=== PATIENT | female | born 2000 | race Caucasian/White ===

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

== ENCOUNTER 2023-06-08 16:30 | Emergency (ER) | payer OTHER, SELFPAY ==
[2023-06-08] VITALS (19 sets, daily range): BP systolic 105–140; BP diastolic 70–88; PULSE 47–69; RESP 14–27; TEMP 36.6; O2SAT 97–100; BMI 28.8
[2023-06-08 16:57] LABS: Basophils # 0.1 10^3/uL (0.0-0.1); Basophils % 0.3 %; Eosinophils % 0.1 %; Lymphocytes # 1.5 10^3/uL (0.8-4.8); Lymphocytes % 9.6 %; Mean Corpuscular HGB Conc 34.8 g/dL (30-55); Mean Corpuscular Hemoglobin 30.7 pg (27-33); Mean Corpuscular Volume 88.2 fl (85-98); Mean Platelet Volume 9.9 fL (7.4-10.4); Monocytes # 0.6 10^3/uL (0.2-0.9); Monocytes % 3.8 %; Neutrophils # 13.02 10^3/uL (1.8-7.7); Neutrophils % 85.9 %; Nucleated Red Blood Cells % 0 %; Platelet Count 291 10^3/cmm (157-399); Red Blood Count 4.99 10^6/uL (3.85-5.65); Red Cell Distribution Width 11.9 % (12.1-15.1); White Blood Count 15.17 10^3/uL (3.29-11.43)
[2023-06-08] MEDS: sodium chloride 0.9% 1,000 ML 999 ML IV (17:13)
[2023-06-08 17:14] LABS: Alanine Aminotransferase 13 U/L (0-33); Albumin Level 5.2 g/dL (3.5-5.2); Alkaline Phosphatase 61 U/L (35-105); Anion Gap 22.3 (5-19); Aspartate Amino Transferase 12 U/L (0-32); Blood Urea Nitrogen 13 mg/dL (6-20); Calcium 9.6 mg/dL (8.5-10.5); Carbon Dioxide 19 mmol/L (22-29); Chloride 103 mmol/L (98-107); Creatinine Clr Calc Pharmacy 141.1773; Globulin 3.2 g/dL (1.3-4.6); Glomerular Filtration Rate 105.6 mL/min (90-130); Glucose 157 mg/dL (65-115); Lipase 23 U/L (13-60); Osmolality Calculated 295 mOsm/kg (285-295); Potassium 3.3 mmol/L (3.5-5.1); Sodium 141 mmol/L (136-145); Total Bilirubin 1.6 mg/dL (0.15-1.2); Total Protein 8.4 g/dL (6.6-8.7)
[2023-06-08] MEDS: metoclopramide 5 mg/mL SDV 2 mL 10 MG IVP (17:14)
[2023-06-08 17:17] LABS: HCG, Serum Qual Negative (Negative)
[2023-06-08] MEDS: ketorolac 30 mg/mL INJ IVP (17:49)
--- NOTE | 2023-06-08 18:12 | W.ED.ABDPA2 ---
HPI - Abdominal Pain General: Chief Complaint: Abdominal Pain Stated Complaint: abd pain, sent by urgent care Time Seen by Provider: 06/08/23 16:51 History of Present Illness: Patient presents to the ER with complaints of epigastric abdominal pain and nausea vomiting. Patient states this been going on for the last few months that she is barely been able to finish her meal. Patient says she does not have a gallbladder. Patient does appear mildly lethargic and pale. Patient went to the urgent care earlier today and they sent her over here for IV fluids and further evaluation and treatment. Review of Systems General: Reports: 10 or more systems reviewed and unremarkable except in HPI and below PFSH ED PFSH: Social History Smoking and tobacco/nicotine status: current every day tobacco/nicotine user (pt states she vapes) Physical Exam Const: COMMON NORMALS: no acute distress, average body habitus, patient oriented x3, no limitations, healthy appearing, alert and well nourished HENMT: COMMON NORMALS: normocephalic, atraumatic, hearing grossly normal bilaterally, external ears normal, Normal external nose present, moist oral mucous membranes and oropharynx normal HEAD & SCALP: normocephalic and atraumatic NOSE: Normal external nose present EXTERNAL EAR: Yes external ears normal Neck/C-Spine: COMMON NORMALS: full ROM, no lymphadenopathy, supple, no meningeal signs, no JVD and Thyroid normal THYROID: Thyroid normal Chest: COMMONS NORMALS: normal inspection of the chest and normal palpation of entire chest wall Resp: COMMON NORMALS: normal respiratory effort, No retractions, No use of accessory muscles and clear to auscultation bilaterally AUSCULTATION: clear to auscultation bilaterally Cardio: COMMON NORMALS: no JVD, regular rate, regular rhythm, S1 normal heart sound present, S2 normal heart sound present, No gallops present (Cardio), No clicks present (Cardio), No murmurs present (Cardio) and No rub (Cardio) RATE: regular rate RHYTHM: regular rhythm HEART SOUNDS: S1 normal heart sound present and S2 normal heart sound present GI: COMMON NORMALS: Normal to inspection, nondistended, normoactive bowel sounds present, Soft to palpation, No hepatosplenomegaly present and no masses; negative for non-tender (Tender to palpate over epigastric area) PALPATION: Yes Soft to palpation and Yes No hepatosplenomegaly present Neuro: COMMON NORMALS: patient oriented x3 SENSORIUM/ORIENTATION: Yes alert MENINGEAL SIGNS: Yes no meningeal signs Course Vital Signs: Vital signs: Vital Signs Temperature 97.8 F 06/08/23 16:33 Pulse Rate 60 06/08/23 18:35 Respiratory Rate 18 06/08/23 18:35 Blood Pressure 124/75 06/08/23 18:35 Pulse Oximetry 100 06/08/23 18:35 Oxygen Delivery Me thod Room Air 06/08/23 18:35 MDM - Abdominal Pain Medical Decision Making Patient presents to the ER from urgent care where she had 8 mg of Zofran, patient got 10 mg of Reglan here which were good for couple hours then patient got Haldol and Ativan. Lab work came back patient has a white count of 15,000 potassium 3.3 otherwise lab work is essentially unremarkable. Patient hurt in her epigastric area. It is thought you probably have a gastritis with stomach involvement patient will be discharged on Zofran and Pepcid to take for the next couple weeks. Differential Diagnosis Likely abdominal pain; Unlikely acute appendicitis, calculus of kidney, constipation, diverticulitis, endometriosis, gastroenteritis, pancreatitis or small bowel obstruction Medical Records I reviewed the patient's medical records. Lab Data I reviewed the patient's lab results. 06/08/23 16:51 06/08/23 16:51 Labs/Radiology: Laboratory Results WBC 15.17 10^3/uL (3.29-11.43) H 06/08/23 16:51 RBC 4.99 10^6/uL (3.85-5.65) 06/08/23 16:51 Hgb 15.30 g/dL (11.27-16.99) 06/08/23 16:51 Hct 44.0 % (36-47) 06/08/23 16:51 MCV 88.2 fl (85-98) 06/08/23 16:51 MCH 30.7 pg (27-33) 06/08/23 16:51 MCHC 34.8 g/dL (30-55) 06/08/23 16:51 RDW 11.9 % (12.1-15.1) L 06/08/23 16:51 Plt Count 291 10^3/cmm (157-399) 06/08/23 16:51 MPV 9.9 fL (7.4-10.4) 06/08/23 16:51 Neut % (Auto) 85.9 % 06/08/23 16:51 Lymph % (Auto) 9.6 % 06/08/23 16:51 [place] % (Auto) 3.8 % 06/08/23 16:51 Eos % (Auto) 0.1 % 06/08/23 16:51 Baso % (Auto) 0.3 % 06/08/23 16:51 Neut # (Auto) 13.02 10^3/uL (1.8-7.7) H 06/08/23 16:51 Lymph # (Auto) 1.5 10^3/uL (0.8-4.8) 06/08/23 16:51 [place] # (Auto) 0.6 10^3/uL (0.2-0.9) 06/08/23 16:51 Eos # (Auto) 0.0 10^3/uL (0.0-0.8) 06/08/23 16:51 Baso # (Auto) 0.1 10^3/uL (0.0-0.1) 06/08/23 16:51 Nucleated RBC % (auto) 0 % 06/08/23 16:51 Nucleated RBCs # 0.0 /100WBC 06/08/23 16:51 Sodium 141 mmol/L (136-145) 06/08/23 16:51 Potassium 3.3 mmol/L (3.5-5.1) L 06/08/23 16:51 Chloride 103 mmol/L (98-107) 06/08/23 16:51 Carbon Dioxide 19 mmol/L (22-29) L 06/08/23 16:51 Anion Gap 22.3 (5-19) H 06/08/23 16:51 BUN 13 mg/dL (6-20) 06/08/23 16:51 Creatinine 0.7 mg/dL (0.5-0.9) 06/08/23 16:51 GFR Calculation 105.6 mL/min (90-130) 06/08/23 16:51 Glucose 157 mg/dL (65-115) H 06/08/23 16:51 Calculated Osmolality 295 mOsm/kg (285-295) 06/08/23 16:51 Calcium 9.6 mg/dL (8.5-10.5) 06/08/23 16:51 Total Bilirubin 1.6 mg/dL (0.15-1.2) H 06/08/23 16:51 AST 12 U/L (0-32) 06/08/23 16:51 ALT 13 U/L (0-33) 06/08/23 16:51 Alkaline Phosphatase 61 U/L (35-105) 06/08/23 16:51 Total Protein 8.4 g/dL (6.6-8.7) 06/08/23 16:51 Albumin 5.2 g/dL (3.5-5.2) 06/08/23 16:51 Globulin 3.2 g/dL (1.3-4.6) 06/08/23 16:51 Lipase 23 U/L (13-60) 06/08/23 16:51 HCG, Qual Negative (Negative) 06/08/23 16:51 Urine Color Dark yellow (Yellow) 06/08/23 18:18 Urine Appearance Clear (CLEAR) 06/08/23 18:18 Urine pH 5 (5-7) 06/08/23 18:18 Ur Specific Woody 1.025 (1.005-1.030) 06/08/23 18:18 Urine Protein Neg (Negative) 06/08/23 18:18 Urine Glucose (UA) 2+ (Normal) H 06/08/23 18:18 Urine Ketones 3+ (Negative) H 06/08/23 18:18 Urine Blood Neg (Negative) 06/08/23 18:18 Urine Nitrate Negative (Negative) 06/08/23 18:18 Urine Bilirubin Neg (Negative) 06/08/23 18:18 Urine Urobilinogen 1 mg/dL (Negative) H 06/08/23 18:18 Ur Leukocyte Esterase Negative (Negative) 06/08/23 18:18 All radiology interpretation(s) finalized by discharge Discharge Plan Discharge Patient Disposition: Home Clinical Impression: Vomiting Qualifiers: Vomiting type: bilious vomiting Nausea presence: with nausea Qualified Code(s): R11.14 - Bilious vomiting Abdominal pain Qualifiers: Abdominal location: epigastric Qualified Code(s): R10.13 - Epigastric pain Condition: Stable Prescriptions: New ondansetron HCl 4 mg tablet 4 mg PO Q8H PRN (Reason: nausea and vomiting) Qty: 14 0RF famotidine [Pepcid] 40 mg tablet 40 mg PO BID Qty: 30 0RF No Action omeprazole 20 mg Tablet,Delayed Release (Dr/Ec) 20 mg PO DAILY Discharge Orders: Discharge ED (Routine); Ordered 06/08/23 Ordered By: Toney Sullivan Referrals: Agnieszka Keating MD [Primary Care Provider] - 1 week Patient Instructions: Abdominal Pain (ED) Activity Restrictions/Additional Instructions: Please take all your medicine as directed. Please follow-up with your family doctor in the next 7 days for further evaluation testing. If your pain or nausea vomiting becomes worsening or unbearable please return to the ER. Coding Level of Care Code ED Civil Engineering Director for Neda Garcia
[2023-06-08 18:23] LABS: Add Urine Microscopic? NO; Charge for UA Resulting for Rev
[2023-06-08] MEDS: LORazepam 2 mg/mL INJ 10 mL MDV 0.5 MG IV (18:27)
[2023-06-08] MEDS: haloperidol inj 5 mg/mL INJ 1 mL 2 MG IVP (18:28)
[2023-06-08 18:32] LABS: Bilirubin Urine Neg (Negative); Blood Urine Neg (Negative); Glucose Urine UA 2+ (Normal); Ketones Urine 3+ (Negative); Leukocyte Esterase Urine Negative (Negative); Nitrate Urine Negative (Negative); Protein Urine Neg (Negative); Specific Gravity, Urine 1.025 (1.005-1.030); Urine Appearance Clear (CLEAR); Urine Color Dark Yellow (Yellow); Urobilinogen Urine 1 mg/dL (Negative); pH Urine 5 (5-7)
== END 2023-06-08 19:11 | disposition home or self-care (01) ==
PROVIDERS: Emergency Medicine; Emergency Provider Emergency Medicine; PCP Family Medicine
DX: R11.14 Bilious vomiting (principal); R10.13 Epigastric pain; F17.290 Nicotine dependence, other tobacco product, uncomplicated
CPT/HCPCS: 80053; 81000; 81003; 81025; 83690; 84703; 85025; 96374; 96375; 99284; J1630; J1885; J2060; J2765; J7030

== ENCOUNTER 2023-06-30 10:07 | Emergency (ER) | payer OTHER, SELFPAY ==
[2023-06-30] VITALS (7 sets, daily range): BP systolic 106–138; BP diastolic 78–95; PULSE 87–140; RESP 17–18; TEMP 36.5; O2SAT 96–100; BMI 26.2
--- NOTE | 2023-06-30 10:15 | ECG_ITS ---
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 Measurements Intervals [place] Rate: 151 P: -19 [place]: 135 QRS: -10 QRSD: 70 T: -11 QT: 306 QTc: 485 Interpretive Statements SINUS TACHYCARDIA WITH , POSSIBLE ATRIAL FLUTTER NONSPECIFIC ST & T-WAVE ABNORMALITY CRITICAL TEST RESULT Compared to ECG 12/25/2016 09:09:44 T-wave abnormality now present Sinus rhythm no longer present Electronically Signed On 07-01-2023 0:22:09 CDT by Jessica Spence M.D. [email or web address]
[2023-06-30 10:57] LABS: HCG Qualitative Urine. Negative (Negative)
[2023-06-30] MEDS: sodium chloride 0.9% 1,000 ML 999 ML IV (11:03)
[2023-06-30 11:04] LABS: Basophils % 0.4 %; Eosinophils # 0.1 10^3/uL (0.0-0.8); Eosinophils % 0.7 %; Hematocrit 46.9 % (36-47); Lymphocytes # 1.2 10^3/uL (0.8-4.8); Lymphocytes % 16.9 %; Mean Corpuscular Hemoglobin 30.5 pg (27-33); Mean Corpuscular Volume 87.2 fl (85-98); Mean Platelet Volume 10.7 fL (7.4-10.4); Monocytes # 0.3 10^3/uL (0.2-0.9); Monocytes % 3.6 %; Neutrophils % 78.1 %; Nucleated Red Blood Cells % 0 %; Platelet Count 237 10^3/cmm (157-399); Red Blood Count 5.38 10^6/uL (3.85-5.65); Red Cell Distribution Width 12.5 % (12.1-15.1); White Blood Count 6.92 10^3/uL (3.29-11.43)
[2023-06-30] MEDS: metoclopramide 5 mg/mL SDV 2 mL 10 MG IVP (11:04)
[2023-06-30 11:19] LABS: Add Urine Microscopic? YES; Bilirubin Urine 1+ (Negative); Blood Urine Neg (Negative); Glucose Urine UA Norm (Normal); Ketones Urine 3+ (Negative); Leukocyte Esterase Urine Negative (Negative); Nitrate Urine Negative (Negative); Protein Urine Neg (Negative); Urine Appearance Hazy (CLEAR); Urine Color Dark Yellow (Yellow); Urobilinogen Urine 1 mg/dL (Negative); pH Urine 6 (5-7)
[2023-06-30 11:21] LABS: Add Urine Culture? No; Bacteria Urine TRACE /hpf; Mucus Urine 4+ /hpf; RBC Urine RARE /hpf (0-2); Squamous Epithelial Cell Urine 0-4 /hpf (0-5); WBC Urine 0-4 /hpf (0-5)
[2023-06-30 11:23] LABS: Alanine Aminotransferase 319 U/L (0-33); Albumin Level 4.9 g/dL (3.5-5.2); Alkaline Phosphatase 64 U/L (35-105); Anion Gap 26.8 (5-19); Aspartate Amino Transferase 90 U/L (0-32); Blood Urea Nitrogen 9 mg/dL (6-20); Calcium 10.3 mg/dL (8.5-10.5); Carbon Dioxide 18 mmol/L (22-29); Chloride 96 mmol/L (98-107); Creatinine Clr Calc Pharmacy 134.9871; Globulin 3.4 g/dL (1.3-4.6); Glomerular Filtration Rate 105.6 mL/min (90-130); Glucose 90 mg/dL (65-115); Lipase 54 U/L (13-60); Osmolality Calculated 282 mOsm/kg (285-295); Potassium 3.8 mmol/L (3.5-5.1); Sodium 137 mmol/L (136-145); Total Bilirubin 1.8 mg/dL (0.15-1.2); Total Protein 8.3 g/dL (6.6-8.7)
[2023-06-30 11:45] LABS: Amphetamines Screen Urine Negative (Negative); Barbiturates Screen Urine Negative (Negative); Benzodiazepines Screen Urine Negative (Negative); Cocaine Screen Urine Negative (Negative); Opiate Screen Urine Negative (Negative); PCP Screen Urine Negative (Negative); THC Screen Urine Positive (Negative)
--- NOTE | 2023-06-30 12:51 | CT_ITS ---
WS: [id number] CT ABDOMEN AND PELVIS WITH CONTRAST HISTORY: upper abd pain, vomiting x2 wks TECHNIQUE: Imaging performed of the abdomen and pelvis with IV contrast. Single phase imaging of the abdomen. Coronal and sagittal reformats are submitted. All CT scans at [facility] use at [address] one of these dose optimization techniques: automated exposure control; mA and/or kV adjustment per patient size (includes targeted exams where dose is matched to clinical indication); or iterative re construction. IV CONTRAST: Omnipaque 350; 100 mL IV. Oral contrast: No DLP: 516.99 mGy.cm COMPARISON: 07/02/2019 Lower thorax: Lung bases are clear. Heart is normal size. No hiatal hernia. Liver/biliary system: Normal size with no intrahepatic dilatation. Gallbladder: Status post cholecystectomy. Pancreas: Normal size pancreas and pancreatic duct. No adjacent inflammation. Spleen: Normal size spleen. No mass or infarct. Adrenal glands: Normal. Right kidney: Normal. Left kidney: Normal. Aorta: Normal. Lymphadenopathy: None. Free fluid: None. GI tract: Unremarkable. Normal appendix. Abdominal wall: Unremarkable abdominal wall. No hernia. Pelvis: No free fluid or adenopathy within the pelvis. Bones: Unremarkable. CT/CT abdomen pelvis w con* [id number] IMPRESSION: 1. Prior cholecystectomy. 2. No bile duct dilatation. 3. Normal appendix. 4. No GI tract obstruction. 5. No acute abdominal or pelvic abnormalities.
--- NOTE | 2023-06-30 13:32 | ED_ITS ---
HPI - Nausea/Vomiting/Diarrhea 2 General: Chief complaint: Nausea/Vomiting/Diarrhea Stated complaint: cant keep anything down/ going on for 3 weeks Time Seen by Provider: 06/30/23 10:27 Source: patient and family Mode of arrival: ambulatory Limitations: no limitations History of Present Illness: Patient presents emergency department today for evaluation treatment of continued upper abdominal pain and vomiting. Patient's chart review shows that she has been seen twice within our healthcare system for the symptoms. Initially, patient was seen on 06/07 but due to her abdominal complaints, was recommended to be seen and evaluated at the emergency department. Initial documentation noted patient does not have a gallbladder but does use marijuana. They were thinking patient may have hyperemesis cannabis. ER evaluation revealed no acute concerns at that time and was treated symptomatically for abdominal discomfort and vomiting. Patient states she continued to have symptoms and admits she was seen at an outside facility. She noted she had some elevated liver function test and they did an ultrasound but found no acute concerns. She continues to have multiple episodes of vomiting daily with upper abdominal discomfort only relieved by her leaning over. She does get some relief with hot showers or baths per her report. No other similarly ill at home. She denies black or tarry stools. No noted blood in her vomit. She is having difficulty tolerating any type of intake including fluids. She is concerned for dehydration. Review of Systems 2 General: Reports: 10 or more systems reviewed and unremarkable except in HPI and below PFSH ED 2 PFSH: Social History Smoking and tobacco/nicotine status: current every day tobacco/nicotine user (pt states she vapes) Physical Exam 2 Const: COMMON NORMALS: patient oriented x3 and alert OTHER: Patient is pleasant and social but obviously uncomfortable. Sitting crosslegged on the bed leaning forward holding her abdomen. HENMT: COMMON NORMALS: normocephalic, atraumatic, hearing grossly normal bilaterally and moist oral mucous membranes HEAD & SCALP: normocephalic and atraumatic Eye: COMMON NORMALS: Equal, round and reactive pupils present, EOMs intact bilaterally and conjunctivae normal CONJUNCTIVA: Yes conjunctivae normal P UPIL: Yes Equal, round and reactive pupils present Neck/C-Spine: COMMON NORMALS: full ROM and no JVD Lymph: LYMPHATIC: no lymphadenopathy noted Resp: COMMON NORMALS: normal respiratory effort, No retractions, No use of accessory muscles and clear to auscultation bilaterally AUSCULTATION: clear to auscultation bilaterally Cardio: COMMON NORMALS: no JVD, regular rate and regular rhythm RATE: r egular rate RHYTHM: regular rhythm GI: COMMON NORMALS: Soft to palpation PALPATION: Yes Soft to palpation O THER: Patient tender in the upper abdominal region in the right upper quadrant and epigastric region. : COMMON NORMALS: Yes no CVA tenderness BLADDER/KIDNEY EXAM: Yes no CVA tenderness Back/Pelvis: COMMON NORMALS: no CVA tenderness, no thoracic nor lumbar tenderness and thoraco-lumbar ROM normal Extremity: COMMON NORMALS: normal to inspection, full ROM and capillary refill normal Neuro: COMMON NORMALS: patient oriented x3 SENSORIUM/ORIENTATION: Yes alert Psych: COMMON NORMALS: mental status grossly normal, Normal thought process present, cooperative, normal affect and activity/motor behavior normal T HOUGHT PROCESS: Normal thought process present Skin: COMMON NORMALS: no rashes or lesions noted and no wounds GENERAL SKIN EXAM: no rashes or lesions noted Course 2 Vital Signs: Vital signs: Vital Signs Temperature 97.7 F 06/30/23 10:15 Pulse Rate 96 06/30/23 15:12 Respiratory Rate 17 06/30/23 13:30 Blood Pressure 121/95 06/30/23 15:12 Pulse Oximetry 100 06/30/23 15:12 Oxygen Delivery Me thod Room Air 06/30/23 14:00 MDM - Nausea/Vomiting/Diarrhea Medical Decision Making Patient presents today for continued issues with upper abdominal pain and multiple episodes of daily vomiting. Patient has had a couple different evaluations without any acute findings and an underlying concern for possible hyperemesis cannabis. Did discuss with her that symptoms of this condition can last for several weeks. Patient again has elevated LFTs today and a slightly elevated bilirubin and as she had a negative ultrasound a couple of days ago and has a known cholecystectomy, I did proceed on with a CT scan to make sure there was no signs of any pancreatic involvement. Scan is negative today. With all these negative workups, I am more suspicious for hyperemesis cannabis. Patient is given a refill on her antinausea medications and is tolerating some p.o. intake-ice chips-in the room. I encouraged her to call her primary care doctor for recheck of her liver function test here in the next week or so. However, if she begins having itching of the skin or yellowing she is to be seen and reevaluated back in the ER immediately. Differential Diagnosis Likely dehydration; Unlikely traveler's diarrhea, food poisoning, gastroenteritis, clostridium difficile infection or drug-induced nausea and vomiting Lab Data 06/30/23 10:17 06/30/23 10:17 Radiology Impressions Abdomen/Pelvis CT 06/30/23 12:51 IMPRESSION: 1. Prior cholecystectomy. 2. No bile duct dilatation. 3. Normal appendix. 4. No GI tract obstruction. 5. No acute abdominal or pelvic abnormalities. Laboratory Results WBC 6.92 10^3/uL (3.29-11.43) 06/30/23 10:17 RBC 5.38 10^6/uL (3.85-5.65) 06/30/23 10:17 Hgb 16.40 g/dL (11.27-16.99) 06/30/23 10:17 Hct 46.9 % (36-47) 06/30/23 10:17 MCV 87.2 fl (85-98) 06/30/23 10:17 MCH 30.5 pg (27-33) 06/30/23 10:17 MCHC 35.0 g/dL (30-55) 06/30/23 10:17 RDW 12.5 % (12.1-15.1) 06/30/23 10:17 Plt Count 237 10^3/cmm (157-399) 06/30/23 10:17 MPV 10.7 fL (7.4-10.4) H 06/30/23 10:17 Neut % (Auto) 78.1 % 06/30/23 10:17 Lymph % (Auto) 16.9 % 06/30/23 10:17 [place] % (Auto) 3.6 % 06/30/23 10:17 Eos % (Auto) 0.7 % 06/30/23 10:17 Baso % (Auto) 0.4 % 06/30/23 10:17 Neut # (Auto) 5.40 10^3/uL (1.8-7.7) 06/30/23 10:17 Lymph # (Auto) 1.2 10^3/uL (0.8-4.8) 06/30/23 10:17 [place] # (Auto) 0.3 10^3/uL (0.2-0.9) 06/30/23 10:17 Eos # (Auto) 0.1 10^3/uL (0.0-0.8) 06/30/23 10:17 Baso # (Auto) 0.0 10^3/uL (0.0-0.1) 06/30/23 10:17 Nucleated RBC % (auto) 0 % 06/30/23 10:17 Nucleated RBCs # 0.0 /100WBC 06/30/23 10:17 Sodium 137 mmol/L (136-145) 06/30/23 10:17 Potassium 3.8 mmol/L (3.5-5.1) 06/30/23 10:17 Chloride 96 mmol/L (98-107) L 06/30/23 10:17 Carbon Dioxide 18 mmol/L (22-29) L 06/30/23 10:17 Anion Gap 26.8 (5-19) H 06/30/23 10:17 BUN 9 mg/dL (6-20) 06/30/23 10:17 Creatinine 0.7 mg/dL (0.5-0.9) 06/30/23 10:17 GFR Calculation 105.6 mL/min (90-130) 06/30/23 10:17 Glucose 90 mg/dL (65-115) 06/30/23 10:17 Calculated Osmolality 282 mOsm/kg (285-295) L 06/30/23 10:17 Calcium 10.3 mg/dL (8.5-10.5) 06/30/23 10:17 Total Bilirubin 1.8 mg/dL (0.15-1.2) H 06/30/23 10:17 AST 90 U/L (0-32) H 06/30/23 10:17 ALT 319 U/L (0-33) H 06/30/23 10:17 Alkaline Phosphatase 64 U/L (35-105) 06/30/23 10:17 Total Protein 8.3 g/dL (6.6-8.7) 06/30/23 10:17 Albumin 4.9 g/dL (3.5-5.2) 06/30/23 10:17 Globulin 3.4 g/dL (1.3-4.6) 06/30/23 10:17 Lipase 54 U/L (13-60) 06/30/23 10:17 HCG, Qual Negative (Negative) 06/30/23 10:33 Urine Color Dark yellow (Yellow) 06/30/23 10:33 Urine Appearance Hazy (CLEAR) A 06/30/23 10:33 Urine pH 6 (5-7) 06/30/23 10:33 Ur Specific [place] 1.030 (1.005-1.030) 06/30/23 10:33 Urine Protein Neg (Negative) 06/30/23 10:33 Urine Glucose (UA) Norm (Normal) 06/30/23 10:33 Urine Ketones 3+ (Negative) H 06/30/23 10:33 Urine Blood Neg (Negative) 06/30/23 10:33 Urine Nitrate Negative (Negative) 06/30/23 10:33 Urine Bilirubin 1+ (Negative) H 06/30/23 10:33 Urine Urobilinogen 1 mg/dL (Negative) H 06/30/23 10:33 Ur Leukocyte Esterase Negative (Negative) 06/30/23 10:33 Urine RBC Rare /hpf (0-2) 06/30/23 10:33 Urine WBC 0-4 /hpf (0-5) H 06/30/23 10:33 Ur Squamous Epith Cells 0-4 /hpf (0-5) H 06/30/23 10:33 Amorphous Sediment Not Reportable 06/30/23 10:33 Urine Bacteria Trace /hpf (NONE) 06/30/23 10:33 Urine Mucus 4+ /hpf 06/30/23 10:33 Urine Opiates Screen Negative ng/mL (Negative) 06/30/23 10:33 Ur Barbiturates Screen Negative ng/mL (Negative) 06/30/23 10:33 Ur Phencyclidine Scrn Negative ng/mL (Negative) 06/30/23 10:33 Ur Amphetamines Screen Negative ng/mL (Negative) 06/30/23 10:33 U Benzodiazepines Scrn Negative ng/mL (Negative) 06/30/23 10:33 Urine Cocaine Screen Negative ng/mL (Negative) 06/30/23 10:33 U Marijuana (THC) Screen Positive ng/mL (Negative) H 06/30/23 10:33 Hepatitis A IgM Ab Non-reactive (Nonreactive) 06/30/23 10:17 Hep Bs Antigen Non-reactive (Nonreactive) 06/30/23 10:17 Hep Bs Antibody 21.5 (11.5-1000) 06/30/23 10:17 Hep B Core Total Ab Non-reactive (Nonreactive) 06/30/23 10:17 Hepatitis C Antibody Non-reactive (Nonreactive) 06/30/23 10:17 All radiology interpretation(s) finalized by discharge Discharge Plan Discharge Patient Disposition: Home Clinical Impression: Elevated liver enzymes, Vomiting, Upper abdominal pain, History of cholecystectomy Condition: Stable Prescriptions: New ondansetron 4 mg tablet,disintegrating 4 mg PO Q8H 5 Days Qty: 15 0RF No Action omeprazole 20 mg Tablet,Delayed Release (Dr/Ec) 20 mg PO DAILY ondansetron HCl 4 mg tablet 4 mg PO Q8H PRN (Reason: nausea and vomiting) Qty: 14 0RF sucralfate 1 gram tablet 1 g PO QID hyoscyamine sulfate 0.125 mg tablet, sublingual 0.125 mg PO .6XDAILY PRN (Reason: UNKNOWN) Discharge Orders: Discharge ED (Routine); Ordered 06/30/23 Ordered By: Valeria Reilly Referrals: Agnieszka Keating MD [Primary Care Provider] - Discharge Diet: Advance as tolerated Discharge Activity: Increase activity as tolerated Activity Restrictions/Additional Instructions: Labs today show a slight elevation in your liver function test. Given that you do not have a gallbladder and recently had a negative ultrasound, we did obtain a CT scan to make sure that there was nothing around the pancreas or in the back of the liver that was unable to be visualized by the ultrasound. Fortunately, there were no abnormal findings on your CT examination. I recommend you have your liver function tests repeated in the next week or 2 by your primary care doctor. I am going to continue providing you antinausea medication as it is more likely at this point that you are still experiencing symptoms of hyperemesis cannabis. Unfortunately, the symptoms can last a couple of weeks after your last marijuana use. It does cause significant upper abdominal pains and profuse vomiting. The biggest concern is often dehydration as patients have difficult times tolerating p.o. intake. It is my hope that in the next several days you have resolution of your symptoms. If not, or if you have allover itching of your skin or yellowing of your skin you need to be seen and reevaluated again. Stand Alone Forms: Work/School Release Coding Level of Care Code ED Hosiery Repairer for Neda Garcia
[2023-06-30] MEDS: iohexol 350 mg/mL 500 mL Btl (per mL) IV (13:46)
[2023-06-30 13:55] LABS: Hepatitis A Antibody IgM Non-Reactive (Nonreactive); Hepatitis B Core AB, Total Non-Reactive (Nonreactive); Hepatitis B Surface AB 21.5 (11.5-1000); Hepatitis B Surface Antigen Non-Reactive (Nonreactive); Hepatitis C Virus Antibody Non-Reactive (Nonreactive)
== END 2023-06-30 15:13 | disposition home or self-care (01) ==
PROVIDERS: Emergency Medicine; Emergency Provider Physician Assistant; PCP Family Medicine
DX: R11.10 Vomiting, unspecified (principal); R10.10 Upper abdominal pain, unspecified; R74.01 Elevation of levels of liver transaminase levels; Z90.49 Acquired absence of other specified parts of digestive tract
CPT/HCPCS: 74177; 80053; 80306; 81001; 81025; 83690; 85025; 86705; 86706; 86709; 86803; 87340; 93005; 96361; 96374; 99285; J2765; J7030; Q9967

== ENCOUNTER 2023-07-06 09:27 | Emergency (ER) | payer OTHER, SELFPAY ==
[2023-07-06 09:59] VITALS: BP 104/88; PULSE 140; RESP 18; TEMP 36.7; O2SAT 97
[2023-07-06 10:12] LABS: Basophils % 0.5 %; Eosinophils % 0.5 %; Hematocrit 46.5 % (36-47); Lymphocytes # 1.3 10^3/uL (0.8-4.8); Lymphocytes % 20.8 %; Mean Corpuscular HGB Conc 34.8 g/dL (30-55); Mean Corpuscular Hemoglobin 30.6 pg (27-33); Mean Corpuscular Volume 87.9 fl (85-98); Mean Platelet Volume 10.5 fL (7.4-10.4); Monocytes # 0.4 10^3/uL (0.2-0.9); Monocytes % 6.3 %; Neutrophils # 4.55 10^3/uL (1.8-7.7); Neutrophils % 71.7 %; Nucleated Red Blood Cells % 0 %; Platelet Count 243 10^3/cmm (157-399); Red Blood Count 5.29 10^6/uL (3.85-5.65); White Blood Count 6.34 10^3/uL (3.29-11.43)
[2023-07-06 10:19] LABS: HCG, Serum Qual Negative (Negative)
[2023-07-06 10:26] LABS: Alanine Aminotransferase 167 U/L (0-33); Albumin Level 4.5 g/dL (3.5-5.2); Alkaline Phosphatase 62 U/L (35-105); Anion Gap 26.3 (5-19); Aspartate Amino Transferase 28 U/L (0-32); Blood Urea Nitrogen 9 mg/dL (6-20); Calcium 10.1 mg/dL (8.5-10.5); Carbon Dioxide 17 mmol/L (22-29); Chloride 96 mmol/L (98-107); Creatinine Clr Calc Pharmacy 154.5113; Globulin 3.3 g/dL (1.3-4.6); Glomerular Filtration Rate 126.2 mL/min (90-130); Glucose 121 mg/dL (65-115); Lipase 41 U/L (13-60); Osmolality Calculated 282 mOsm/kg (285-295); Potassium 3.3 mmol/L (3.5-5.1); Sodium 136 mmol/L (136-145); Total Bilirubin 1.7 mg/dL (0.15-1.2); Total Protein 7.8 g/dL (6.6-8.7)
[2023-07-06 10:40] VITALS: BP 120/92; PULSE 124; RESP 17; O2SAT 100
[2023-07-06] MEDS: sodium chloride 0.9% 1,000 ML 999 ML IV (10:56)
[2023-07-06] MEDS: ondansetron 2 mg/ML SDV 2 mL 8 MG IVP (10:56)
--- NOTE | 2023-07-06 11:21 | W.ED.NAVMDI ---
HPI - Nausea/Vomiting/Diarrhea General: Chief complaint: Nausea/Vomiting/Diarrhea Stated complaint: Vomiting Time Seen by Provider: 07/06/23 10:17 History of Present Illness: 23-year-old female presents the emergency room with nausea and vomiting and upper abdominal pain. She has been seen at this emergency room, [place], another [facility], and [place] in the last 3 weeks. Originally was thought to be cannabinoid hyperemesis. She says she has not smoked in 3 weeks and continues to have nausea and vomiting. She says she will occasionally have a good day but then it will happen again. She has Zofran. She is been on high-dose amine. She has been on Carafate. No fevers. No altered mental status. No diarrhea. She is supposed to see a electroneurodiagnostic technologist beginning of next month. Review of Systems Narrative: Constitutional symptoms: Negative except as documented in HPI. Skin symptoms: Negative except as documented in HPI. Eye symptoms: Negative except as documented in HPI. ENMT symptoms: Negative except as documented in HPI. Respiratory symptoms: Negative except as documented in HPI. Cardiovascular symptoms: Negative except as documented in HPI. Gastrointestinal symptoms: Negative except as documented in HPI. Genitourinary symptoms: Negative except as documented in HPI. Musculoskeletal symptoms: Negative except as documented in HPI. Neurologic symptoms: Negative except as documented in HPI. Psychiatric symptoms: Negative except as documented in HPI. Endocrine symptoms: Negative except as documented in HPI. [facility] ED PFSH: Social History Smoking and tobacco/nicotine status: current every day tobacco/nicotine user (pt states she vapes) Physical Exam Narrative: EXAM NARRATIVE: General: Alert, no acute distress. Skin: Warm, dry. Head: Normocephalic, atraumatic. Neck: Supple, trachea midline. Eye: Extraocular movements are intact. Ears, nose, mouth and throat: Tacky oral mucosa Cardiovascular: Regular, Normal peripheral perfusion. Respiratory: Lungs are clear to auscultation, respirations are non-labored, breath sounds are equal, Symmetrical chest wall expansion. Gastrointestinal: Soft, Nontender, Non distended, Normal bowel sounds. Musculoskeletal: Normal ROM, no deformity. Neurological: Alert and oriented, No focal neurological deficit observed. Psychiatric: Cooperative, appropriate mood & affect. Course Vital Signs: Vital signs: Vital Signs Temperature 98.1 F 07/06/23 09:59 Pulse Rate 109 H 07/06/23 12:41 Respiratory Rate 20 H 07/06/23 12:41 Blood Pressure 133/98 07/06/23 12:41 Pulse Oximetry 100 07/06/23 12:41 Oxygen Delivery Me thod Room Air 07/06/23 09:59 MDM - Nausea/Vomiting/Diarrhea Medical Decision Making Medical decision making: Differential diagnosis including but not limited to and based on the above HPI, review of systems and physical exam: Patient has had extensive workup. I do not think imaging will help today. Believe she needs follow-up with gastroenterology. Also her primary care provider. We will check basic lab work and check for renal failure today. Check electrolytes Orders placed to evaluate differential diagnosis based on the above differential, HPI and physical exam Lab Review: Laboratory results were reviewed and interpreted by myself the emergency room physician. White count is 6. Hemoglobin 16. BUN and creatinine are 9 and 0.6. Potassium just mildly decreased at 3.3. No urinary tract infection. I reviewed the patient's medical record. Reexamination: Vomiting has improved after receiving Zofran, fluids and then Compazine and Benadryl. Assessment and plan: Vomiting Dehydration - IV FLuids IV Compazine Benadryl and Zofran. - Discharged home - Discussed plan with patient. Answered any questions. - Evaluation and treatment of this problem were appropriate in the emergency setting. Lab Data 07/06/23 09:56 07/06/23 09:56 Laboratory Results WBC 6.34 10^3/uL (3.29-11.43) 07/06/23 09:56 RBC 5.29 10^6/uL (3.85-5.65) 07/06/23 09:56 Hgb 16.20 g/dL (11.27-16.99) 07/06/23 09:56 Hct 46.5 % (36-47) 07/06/23 09:56 MCV 87.9 fl (85-98) 07/06/23 09:56 MCH 30.6 pg (27-33) 07/06/23 09:56 MCHC 34.8 g/dL (30-55) 07/06/23 09:56 RDW 13.0 % (12.1-15.1) 07/06/23 09:56 Plt Count 243 10^3/cmm (157-399) 07/06/23 09:56 MPV 10.5 fL (7.4-10.4) H 07/06/23 09:56 Neut % (Auto) 71.7 % 07/06/23 09:56 Lymph % (Auto) 20.8 % 07/06/23 09:56 [place] % (Auto) 6.3 % 07/06/23 09:56 Eos % (Auto) 0.5 % 07/06/23 09:56 Baso % (Auto) 0.5 % 07/06/23 09:56 Neut # (Auto) 4.55 10^3/uL (1.8-7.7) 07/06/23 09:56 Lymph # (Auto) 1.3 10^3/uL (0.8-4.8) 07/06/23 09:56 [place] # (Auto) 0.4 10^3/uL (0.2-0.9) 07/06/23 09:56 Eos # (Auto) 0.0 10^3/uL (0.0-0.8) 07/06/23 09:56 Baso # (Auto) 0.0 10^3/uL (0.0-0.1) 07/06/23 09:56 Nucleated RBC % (auto) 0 % 07/06/23 09:56 Nucleated RBCs # 0.0 /100WBC 07/06/23 09:56 Sodium 136 mmol/L (136-145) 07/06/23 09:56 Potassium 3.3 mmol/L (3.5-5.1) L 07/06/23 09:56 Chloride 96 mmol/L (98-107) L 07/06/23 09:56 Carbon Dioxide 17 mmol/L (22-29) L 07/06/23 09:56 Anion Gap 26.3 (5-19) H 07/06/23 09:56 BUN 9 mg/dL (6-20) 07/06/23 09:56 Creatinine 0.6 mg/dL (0.5-0.9) 07/06/23 09:56 GFR Calculation 126.2 mL/min (90-130) 07/06/23 09:56 Glucose 121 mg/dL (65-115) H 07/06/23 09:56 Calculated Osmolality 282 mOsm/kg (285-295) L 07/06/23 09:56 Calcium 10.1 mg/dL (8.5-10.5) 07/06/23 09:56 Total Bilirubin 1.7 mg/dL (0.15-1.2) H 07/06/23 09:56 AST 28 U/L (0-32) 07/06/23 09:56 ALT 167 U/L (0-33) H 07/06/23 09:56 Alkaline Phosphatase 62 U/L (35-105) 07/06/23 09:56 Total Protein 7.8 g/dL (6.6-8.7) 07/06/23 09:56 Albumin 4.5 g/dL (3.5-5.2) 07/06/23 09:56 Globulin 3.3 g/dL (1.3-4.6) 07/06/23 09:56 Lipase 41 U/L (13-60) 07/06/23 09:56 HCG, Qual Negative (Negative) 07/06/23 09:56 Urine Color Dark yellow (Yellow) 07/06/23 12:22 Urine Appearance Slightly cloudy (CLEAR) 07/06/23 12:22 Urine pH 5 (5-7) 07/06/23 12:22 Ur Specific [place] 1.025 (1.005-1.030) 07/06/23 12:22 Urine Protein 1+ (Negative) H 07/06/23 12:22 Urine Glucose (UA) Norm (Normal) 07/06/23 12:22 Urine Ketones 3+ (Negative) H 07/06/23 12:22 Urine Blood Neg (Negative) 07/06/23 12:22 Urine Nitrate Negative (Negative) 07/06/23 12:22 Urine Bilirubin 1+ (Negative) H 07/06/23 12:22 Urine Urobilinogen 4 mg/dL (Negative) H 07/06/23 12:22 Ur Leukocyte Esterase Trace (Negative) H 07/06/23 12:22 Urine RBC Rare /hpf (0-2) 07/06/23 12:22 Urine WBC Rare /hpf (0-5) 07/06/23 12:22 Ur Squamous Epith Cells 5-10 /hpf (0-5) H 07/06/23 12:22 Amorphous Sediment 2+ /hpf 07/06/23 12:22 Urine Bacteria None /hpf (NONE) 07/06/23 12:22 Urine Mucus 4+ /hpf 07/06/23 12:22 Urine Opiates Screen Negative ng/mL (Negative) 07/06/23 12:22 Ur Barbiturates Screen Negative ng/mL (Negative) 07/06/23 12:22 Ur Phencyclidine Scrn Negative ng/mL (Negative) 07/06/23 12:22 Ur Amphetamines Screen Negative ng/mL (Negative) 07/06/23 12:22 U Benzodiazepines Scrn Negative ng/mL (Negative) 07/06/23 12:22 Urine Cocaine Screen Negative ng/mL (Negative) 07/06/23 12:22 U Marijuana (THC) Screen Positive ng/mL (Negative) H 07/06/23 12:22 No radiology studies performed this visit Discharge Plan Discharge Patient Disposition: Home Clinical Impression: Intractable nausea and vomiting, Dehydration Condition: Stable Prescriptions: New promethazine 25 mg suppository 25 mg GA Q6H PRN (Reason: nausea and vomiting) Qty: 12 0RF ondansetron 8 mg tablet,disintegrating 8 mg PO .q6 PRN (Reason: nausea and vomiting) Qty: 14 0RF No Action omeprazole 20 mg Tablet,Delayed Release (Dr/Ec) 20 mg PO DAILY ondansetron HCl 4 mg tablet 4 mg PO Q8H PRN (Reason: nausea and vomiting) Qty: 14 0RF sucralfate 1 gram tablet 1 g PO QID hyoscyamine sulfate 0.125 mg tablet, sublingual 0.125 mg PO .6XDAILY PRN (Reason: UNKNOWN) Discharge Orders: Discharge ED (Routine); Ordered 07/06/23 Ordered By: Debbie Rubio Referrals: Agnieszka Keating MD [Primary Care Provider] - 4-7 days Discharge Diet: Advance as tolerated Discharge Activity: Increase activity as tolerated Patient Instructions: Acute Nausea and Vomiting (ED) Activity Restrictions/Additional Instructions: Thank you for choosing [facility] for your healthcare needs today. Please realize this is an emergency room and that we are providing you with a medical screening exam and this may not be complete and all inclusive of all the testing and or work up that you may need to determine your ailment or severity of your illness. You have been screened and evaluated and felt safe for discharge. Health conditions do change or evolve sometimes and as such it is important that you follow up with your Primary Doctor to be re checked, 3-5 days is a general good time frame for follow up. You are always welcome to return to the ED for re assessment if your symptoms are worsening or you have new concerns Coding Level of Care Code ED Dance Coach for Neda Garcia
[2023-07-06 12:41] VITALS: BP 133/98; PULSE 109; RESP 20; O2SAT 100
[2023-07-06 12:51] LABS: Glucose Urine UA Norm (Normal); Ketones Urine 3+ (Negative); Protein Urine 1+ (Negative); Specific Gravity, Urine 1.025 (1.005-1.030); Urine Appearance Slightly Cloudy (CLEAR); Urine Color Dark Yellow (Yellow); pH Urine 5 (5-7)
[2023-07-06 12:52] LABS: Add Urine Microscopic? YES; Bilirubin Urine 1+ (Negative); Blood Urine Neg (Negative); Leukocyte Esterase Urine Trace (Negative); Nitrate Urine Negative (Negative); Urobilinogen Urine 4 mg/dL (Negative)
[2023-07-06 12:55] LABS: Add Urine Culture? No; Amorphous Sediment Urine 2+ /hpf; Mucus Urine 4+ /hpf; RBC Urine RARE /hpf (0-2); WBC Urine RARE /hpf (0-5)
[2023-07-06 12:57] LABS: Amphetamines Screen Urine Negative (Negative); Barbiturates Screen Urine Negative (Negative); Benzodiazepines Screen Urine Negative (Negative); Cocaine Screen Urine Negative (Negative); Opiate Screen Urine Negative (Negative); PCP Screen Urine Negative (Negative); THC Screen Urine Positive (Negative)
[2023-07-06] MEDS: diphenhydrAMINE 50 mg/mL SDV 1mL IVP (12:57)
[2023-07-06] MEDS: prochlorperazine 10 mg/2 mL Inj IVP (12:57)
== END 2023-07-06 13:27 | disposition home or self-care (01) ==
PROVIDERS: Physician Assistant; Emergency Provider Emergency Medicine; PCP Family Medicine
DX: R11.2 Nausea with vomiting, unspecified (principal); E86.0 Dehydration; F17.290 Nicotine dependence, other tobacco product, uncomplicated
CPT/HCPCS: 36415; 80053; 80306; 81001; 83690; 84703; 85025; 96361; 96374; 96375; 99284; J0780; J1200; J2405; J7030

== ENCOUNTER 2023-07-10 16:15 | Emergency (ER) | payer OTHER, SELFPAY ==
[2023-07-10 16:21] VITALS: BP 143/117; PULSE 132; RESP 17; TEMP 36.9; O2SAT 97
--- NOTE | 2023-07-10 16:31 | ED_ITS ---
Documented by User: RICHAR Bull 07/10/23 16:40 HPI - Nausea/Vomiting/Diarrhea 2 General: Chief complaint: Nausea/Vomiting/Diarrhea Stated complaint: urgent care sent for fluids, n/v, abd pain, Time Seen by Provider: 07/10/23 16:22 Source: patient Mode of arrival: ambulatory Limitations: no limitations History of Present Illness: Patient is a 23-year-old female presents to ED today with continued abdominal pain, nausea, vomiting. Patient was initially seen at [facility] walk-in clinic on 06/07 (approximately one month ago) for symptoms. She since then has had 3 [facility] emergency department visits. Today will be her fourth [facility] emergency department visit. Patient has reportedly also been seen at [facility], another hospital in [place], as well as [place] over that same time period. She states she may have 1-2 days of improved symptoms but then abdominal pain, nausea, vomiting returns. No fevers. No changes in bowel movements. No yellowing to skin/eyes. Reportedly has a GI speciality follow up in [place] next week. States she has never been given a specific etiology for her symptoms. Previous providers have mentioned cannabis hyperemesis syndrome. Patient states she has not smoked in approximately a month. Prior to this she was a habitual user. 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 She reportedly has had several CT/US scans all of which are inconclusive. MD elicited complaint: nausea, vomiting and abdominal pain Onset (ago): week(s) Associated nausea: Yes Associated abdominal pain: Yes Location of pain: Diffuse Radiation: diffuse Pain consistency: intermittent Severity: severe Quality: cramping Exacerbating factors: eating Relieving factors: none Associated symtoms: Reports nausea; Denies chest pain, dysuria, fatigue, headache(s) or malaise Review of Systems 2 Const: Denies: fever(s), chills, body aches, fatigue or malaise Card: Denies: chest pain Resp: Denies: dyspnea GI: Reports: abdominal pain, nausea and vomiting; Denies: hematemesis or change in bowel habits : Denies: flank pain, difficulty voiding, dysuria, urinary frequency, urinary urgency or urinary hesitancy Musc: Denies: neck pain, back pain, extremity pain or joint pain Skin/Breast: Denies: rash Neuro: Denies: headache(s), numbness in extremities, weakness in extremities or sensory changes PFSH ED 2 PFSH: Social History Smoking and tobacco/nicotine status: current every day tobacco/nicotine user (pt states she vapes) Physical Exam 2 Const: COMMON NORMALS: average body habitus, patient oriented x3, no limitations, healthy appearing, alert and well nourished GENERAL APPEARANCE: cooperative and in distress (pale, nauseous appearing) O RIENTATION/CONSCIOUSNESS: Yes awake, Yes oriented to person, Yes oriented to place and Yes oriented to time Eye: COMMON NORMALS: no scleral icterus Resp: COMMON NORMALS: normal respiratory effort and clear to auscultation bilaterally AUSCULTATION: clear to auscultation bilaterally Cardio: COMMON NORMALS: regular rhythm RATE: tachycardic RHYTHM: regular rhythm GI: COMMON NORMALS: Normal to inspection, nondistended, normoactive bowel sounds present, Soft to palpation, No hepatosplenomegaly present and no masses INSPECTION: Yes normal to inspection AUSCULTATION: Yes normoactive bowel sounds PALPATION: Yes Soft to palpation, Yes Tenderness to palpation present (GI) (diffusely), Yes Guarding due to palpation present (GI), No Rigid due to palpation and Yes No hepatosplenomegaly present : COMMON NORMALS: Yes no CVA tenderness BLADDER/KIDNEY EXAM: Yes no CVA tenderness Back/Pelvis: COMMON NORMALS: no CVA tenderness and thoracic and lumbar spine normal to inspection Extremity: GENERAL: Yes normal exam except as noted Neuro: JAMIE COMA SCALE: document GCS findings Jamie coma scale eye opening: Spontaneous Rexford coma scale verbal response: Orientated Jamie coma scale motor response: Obey commands Jamie coma scale total score: 15 COMMON NORMALS: patient oriented x3, moves all extremities, no focal motor deficits, no sensory deficits noted and gait normal SENSORIUM/ORIENTATION: Yes alert, Yes oriented to person, Yes oriented to place and Yes oriented to time Skin: COMMON NORMALS: no rashes or lesions noted GENERAL SKIN EXAM: no rashes or lesions noted Course 2 Vital Signs: Vital signs: Vital Signs Temperature 98.5 F 07/10/23 16:21 Pulse Rate 132 H 07/10/23 16:21 Respiratory Rate 17 07/10/23 16:21 Blood Pressure 143/117 07/10/23 16:21 Pulse Oximetry 97 07/10/23 16:21 Oxygen Delivery Me thod Room Air 07/10/23 16:21 MDM - Nausea/Vomiting/Diarrhea Lab Data 07/10/23 17:16 07/10/23 18:03 Radiology Impressions Abdomen/Pelvis CT 07/10/23 18:55 IMPRESSION: 1. Prominent fluid in the stomach and small bowel may reflect a gastroenteritis. 2. Fluid in the uterine cavity likely related menstrual status. 3. Hepatic steatosis. 4. Cholecystectomy. Laboratory Results WBC 6.95 10^3/uL (3.29-11.43) 07/10/23 17:16 RBC 5.47 10^6/uL (3.85-5.65) 07/10/23 17:16 Hgb 17.00 g/dL (11.27-16.99) H 07/10/23 17:16 Hct 48.1 % (36-47) H 07/10/23 17:16 MCV 87.9 fl (85-98) 07/10/23 17:16 MCH 31.1 pg (27-33) 07/10/23 17:16 MCHC 35.3 g/dL (30-55) 07/10/23 17:16 RDW 13.2 % (12.1-15.1) 07/10/23 17:16 Plt Count 250 10^3/cmm (157-399) 07/10/23 17:16 MPV 11.7 fL (7.4-10.4) H 07/10/23 17:16 Neut % (Auto) 77.9 % 07/10/23 17:16 Lymph % (Auto) 15.5 % 07/10/23 17:16 Eddy % (Auto) 5.6 % 07/10/23 17:16 Eos % (Auto) 0.3 % 07/10/23 17:16 Baso % (Auto) 0.4 % 07/10/23 17:16 Neut # (Auto) 5.41 10^3/uL (1.8-7.7) 07/10/23 17:16 Lymph # (Auto) 1.1 10^3/uL (0.8-4.8) 07/10/23 17:16 Eddy # (Auto) 0.4 10^3/uL (0.2-0.9) 07/10/23 17:16 Eos # (Auto) 0.0 10^3/uL (0.0-0.8) 07/10/23 17:16 Baso # (Auto) 0.0 10^3/uL (0.0-0.1) 07/10/23 17:16 Nucleated RBC % (auto) 0 % 07/10/23 17:16 Nucleated RBCs # 0.0 /100WBC 07/10/23 17:16 Sodium 136 mmol/L (136-145) 07/10/23 18:03 Potassium 3.4 mmol/L (3.5-5.1) L 07/10/23 18:03 Chloride 98 mmol/L (98-107) 07/10/23 18:03 Carbon Dioxide 20 mmol/L (22-29) L 07/10/23 18:03 Anion Gap 21.4 (5-19) H 07/10/23 18:03 BUN 10 mg/dL (6-20) 07/10/23 18:03 Creatinine 0.4 mg/dL (0.5-0.9) L 07/10/23 18:03 GFR Calculation 201.5 mL/min (90-130) H 07/10/23 18:03 Glucose 100 mg/dL (65-115) 07/10/23 18:03 Calculated Osmolality 281 mOsm/kg (285-295) L 07/10/23 18:03 Calcium 9.0 mg/dL (8.5-10.5) 07/10/23 18:03 Total Bilirubin 1.9 mg/dL (0.15-1.2) H 07/10/23 18:03 AST 122 U/L (0-32) H 07/10/23 18:03 ALT 423 U/L (0-33) H 07/10/23 18:03 Alkaline Phosphatase 65 U/L (35-105) 07/10/23 18:03 Total Protein 7.5 g/dL (6.6-8.7) 07/10/23 18:03 Albumin 4.4 g/dL (3.5-5.2) 07/10/23 18:03 Globulin 3.1 g/dL (1.3-4.6) 07/10/23 18:03 Lipase 34 U/L (13-60) 07/10/23 18:03 HCG, Qual Negative (Negative) 07/10/23 18:03 Urine Color Dark yellow (Yellow) 07/10/23 17:45 Urine Appearance Cloudy (CLEAR) A 07/10/23 17:45 Urine pH 5 (5-7) 07/10/23 17:45 Ur Specific Dulzura 1.030 (1.005-1.030) 07/10/23 17:45 Urine Protein 1+ (Negative) H 07/10/23 17:45 Urine Glucose (UA) Norm (Normal) 07/10/23 17:45 Urine Ketones 3+ (Negative) H 07/10/23 17:45 Urine Blood Neg (Negative) 07/10/23 17:45 Urine Nitrate Positive (Negative) H 07/10/23 17:45 Urine Bilirubin 1+ (Negative) H 07/10/23 17:45 Urine Urobilinogen 4 mg/dL (Negative) H 07/10/23 17:45 Ur Leukocyte Esterase Trace (Negative) H 07/10/23 17:45 Urine RBC 0-4 /hpf (0-2) H 07/10/23 17:45 Urine WBC 5-10 /hpf (0-5) H 07/10/23 17:45 Ur Squamous Epith Cells 25-40 /hpf (0-5) H 07/10/23 17:45 Amorphous Sediment 1+ /hpf 07/10/23 17:45 Urine Bacteria 2+ /hpf (NONE) H 07/10/23 17:45 Urine Mucus 4+ /hpf 07/10/23 17:45 Discharge Plan Discharge Patient Disposition: Home Clinical Impression: Gastroenteritis Condition: Stable Prescriptions: New metronidazole 500 mg tablet 500 mg PO BID 7 Days Qty: 14 0RF Cipro 500 mg tablet 500 mg PO BID 10 Days Qty: 20 0RF No Action omeprazole 20 mg Tablet,Delayed Release (Dr/Ec) 20 mg PO DAILY ondansetron HCl 4 mg tablet 4 mg PO Q8H PRN (Reason: nausea and vomiting) Qty: 14 0RF promethazine 25 mg suppository 25 mg NJ Q6H PRN (Reason: nausea and vomiting) Qty: 12 0RF ondansetron 8 mg tablet,disintegrating 8 mg PO .q6 PRN (Reason: nausea and vomiting) Qty: 14 0RF sucralfate 1 gram tablet 1 g PO QID hyoscyamine sulfate 0.125 mg tablet, sublingual 0.125 mg PO .6XDAILY PRN (Reason: UNKNOWN) Discharge Orders: Discharge ED (Routine); Ordered 07/10/23 Ordered By: Nader Andrews Referrals: Agnieszka Keating MD [Primary Care Provider] - Discharge Diet: As Directed Discharge Activity: Increase activity as tolerated Patient Instructions: Gastroenteritis (ED) Activity Restrictions/Additional Instructions: Take antibiotics as prescribed. Plenty of fluids. Clear liquid diet. Follow-up with GI next week as scheduled. Return with any new or worsening. Sign Out Sign Out Data: Patient Sign Out occurred on 07/10/23 at 17:02. Patient's care was discussed, and care was transferred from RICHAR Bull to RICHAR Moulton. Coding Level of Care Code ED Account Executive Software Sales for [employer] Documented by User: RICHAR Moulton 07/10/23 19:48 HPI - Nausea/Vomiting/Diarrhea 2 General: Chief complaint: Nausea/Vomiting/Diarrhea Stated complaint: urgent care sent for fluids, n/v, abd pain, Time Seen by Provider: 07/10/23 16:22 [facility] ED 2 PFSH: Social History Smoking and tobacco/nicotine status: current every day tobacco/nicotine user (pt states she vapes) Physical Exam 2 Neuro: JAMIE COMA SCALE: document GCS findings Rexford coma scale total score: 15 Course 2 Vital Signs: Vital signs: Vital Signs Temperature 98.5 F 07/10/23 16:21 Pulse Rate 132 H 07/10/23 16:21 Respiratory Rate 17 07/10/23 16:21 Blood Pressure 143/117 07/10/23 16:21 Pulse Oximetry 97 07/10/23 16:21 Oxygen Delivery Me thod Room Air 07/10/23 16:21 MDM - Nausea/Vomiting/Diarrhea Medical Decision Making Care of patient transferred over to md by RICHAR Bull. Patient has been seen multiple times over the past month for chronic nausea and vomiting, states she has not been told what is wrong with her. Today she reports no significant change, just wants more evaluation. However she does have follow-up with GI next week. Basic lab work essentially stable from previous, though there is a slight uptrend in her LFTs and total bili. She does have a history of cholecystectomy. Urinalysis, though contaminated sample, shows evidence of potential urinary tract infection. I did order a CT abdomen pelvis to reevaluate for any organic cause of her nausea vomiting, does show fluid may be resembling of a gastroenteritis. Will treat with Cipro and Flagyl, this will cover for any potential urinary tract infection patient may be having. She will continue her nausea medications at home. She will follow-up with GI next week as planned and return with any new or worsening. Instructed patient to do clear liquid diet and push fluids. Hepatitis panel is pending at this time. Lab Data 07/10/23 17:16 07/10/23 18:03 Radiology Impressions Abdomen/Pelvis CT 07/10/23 18:55 IMPRESSION: 1. Prominent fluid in the stomach and small bowel may reflect a gastroenteritis. 2. Fluid in the uterine cavity likely related menstrual status. 3. Hepatic steatosis. 4. Cholecystectomy. Laboratory Results WBC 6.95 10^3/uL (3.29-11.43) 07/10/23 17:16 RBC 5.47 10^6/uL (3.85-5.65) 07/10/23 17:16 Hgb 17.00 g/dL (11.27-16.99) H 07/10/23 17:16 Hct 48.1 % (36-47) H 07/10/23 17:16 MCV 87.9 fl (85-98) 07/10/23 17:16 MCH 31.1 pg (27-33) 07/10/23 17:16 MCHC 35.3 g/dL (30-55) 07/10/23 17:16 RDW 13.2 % (12.1-15.1) 07/10/23 17:16 Plt Count 250 10^3/cmm (157-399) 07/10/23 17:16 MPV 11.7 fL (7.4-10.4) H 07/10/23 17:16 Neut % (Auto) 77.9 % 07/10/23 17:16 Lymph % (Auto) 15.5 % 07/10/23 17:16 Eddy % (Auto) 5.6 % 07/10/23 17:16 Eos % (Auto) 0.3 % 07/10/23 17:16 Baso % (Auto) 0.4 % 07/10/23 17:16 Neut # (Auto) 5.41 10^3/uL (1.8-7.7) 07/10/23 17:16 Lymph # (Auto) 1.1 10^3/uL (0.8-4.8) 07/10/23 17:16 Eddy # (Auto) 0.4 10^3/uL (0.2-0.9) 07/10/23 17:16 Eos # (Auto) 0.0 10^3/uL (0.0-0.8) 07/10/23 17:16 Baso # (Auto) 0.0 10^3/uL (0.0-0.1) 07/10/23 17:16 Nucleated RBC % (auto) 0 % 07/10/23 17:16 Nucleated RBCs # 0.0 /100WBC 07/10/23 17:16 Sodium 136 mmol/L (136-145) 07/10/23 18:03 Potassium 3.4 mmol/L (3.5-5.1) L 07/10/23 18:03 Chloride 98 mmol/L (98-107) 07/10/23 18:03 Carbon Dioxide 20 mmol/L (22-29) L 07/10/23 18:03 Anion Gap 21.4 (5-19) H 07/10/23 18:03 BUN 10 mg/dL (6-20) 07/10/23 18:03 Creatinine 0.4 mg/dL (0.5-0.9) L 07/10/23 18:03 GFR Calculation 201.5 mL/min (90-130) H 07/10/23 18:03 Glucose 100 mg/dL (65-115) 07/10/23 18:03 Calculated Osmolality 281 mOsm/kg (285-295) L 07/10/23 18:03 Calcium 9.0 mg/dL (8.5-10.5) 07/10/23 18:03 Total Bilirubin 1.9 mg/dL (0.15-1.2) H 07/10/23 18:03 AST 122 U/L (0-32) H 07/10/23 18:03 ALT 423 U/L (0-33) H 07/10/23 18:03 Alkaline Phosphatase 65 U/L (35-105) 07/10/23 18:03 Total Protein 7.5 g/dL (6.6-8.7) 07/10/23 18:03 Albumin 4.4 g/dL (3.5-5.2) 07/10/23 18:03 Globulin 3.1 g/dL (1.3-4.6) 07/10/23 18:03 Lipase 34 U/L (13-60) 07/10/23 18:03 HCG, Qual Negative (Negative) 07/10/23 18:03 Urine Color Dark yellow (Yellow) 07/10/23 17:45 Urine Appearance Cloudy (CLEAR) A 07/10/23 17:45 Urine pH 5 (5-7) 07/10/23 17:45 Ur Specific Dulzura 1.030 (1.005-1.030) 07/10/23 17:45 Urine Protein 1+ (Negative) H 07/10/23 17:45 Urine Glucose (UA) Norm (Normal) 07/10/23 17:45 Urine Ketones 3+ (Negative) H 07/10/23 17:45 Urine Blood Neg (Negative) 07/10/23 17:45 Urine Nitrate Positive (Negative) H 07/10/23 17:45 Urine Bilirubin 1+ (Negative) H 07/10/23 17:45 Urine Urobilinogen 4 mg/dL (Negative) H 07/10/23 17:45 Ur Leukocyte Esterase Trace (Negative) H 07/10/23 17:45 Urine RBC 0-4 /hpf (0-2) H 07/10/23 17:45 Urine WBC 5-10 /hpf (0-5) H 07/10/23 17:45 Ur Squamous Epith Cells 25-40 /hpf (0-5) H 07/10/23 17:45 Amorphous Sediment 1+ /hpf 07/10/23 17:45 Urine Bacteria 2+ /hpf (NONE) H 07/10/23 17:45 Urine Mucus 4+ /hpf 07/10/23 17:45 All radiology interpretation(s) finalized by discharge Discharge Plan Discharge Patient Disposition: Home Clinical Impression: Gastroenteritis Condition: Stable Prescriptions: New metronidazole 500 mg tablet 500 mg PO BID 7 Days Qty: 14 0RF Cipro 500 mg tablet 500 mg PO BID 10 Days Qty: 20 0RF No Action omeprazole 20 mg Tablet,Delayed Release (Dr/Ec) 20 mg PO DAILY ondansetron HCl 4 mg tablet 4 mg PO Q8H PRN (Reason: nausea and vomiting) Qty: 14 0RF promethazine 25 mg suppository 25 mg NJ Q6H PRN (Reason: nausea and vomiting) Qty: 12 0RF ondansetron 8 mg tablet,disintegrating 8 mg PO .q6 PRN (Reason: nausea and vomiting) Qty: 14 0RF sucralfate 1 gram tablet 1 g PO QID hyoscyamine sulfate 0.125 mg tablet, sublingual 0.125 mg PO .6XDAILY PRN (Reason: UNKNOWN) Discharge Orders: Discharge ED (Routine); Ordered 07/10/23 Ordered By: Nader Andrews Referrals: Agnieszka Keating MD [Primary Care Provider] - Discharge Diet: As Directed Discharge Activity: Increase activity as tolerated Patient Instructions: Gastroenteritis (ED) Activity Restrictions/Additional Instructions: Take antibiotics as prescribed. Plenty of fluids. Clear liquid diet. Follow-up with GI next week as scheduled. Return with any new or worsening. Sign Out Sign Out Data: Patient Sign Out occurred on 07/10/23 at 17:02. Patient's care was discussed, and care was transferred from RICHAR Bull to RICHAR Moulton. Coding Level of Care Code ED Account Executive Software Sales for Neda Garcia
--- NOTE | 2023-07-10 16:33 | ECG_ITS ---
[facility] Test Date: 2023-07-10 Pat Name: Harjinder Solis Department: Room: Gender: Female Consumer Experience Consultant: : 2000 Requested By: Vicki Mcgarry Order Number: [id number] Alize MD: Hector Huitron M.D. Measurements Intervals [place] Rate: 120 P: 60 WA: 145 QRS: 51 QRSD: 70 T: 11 QT: 303 QTc: 430 Interpretive Statements SINUS TACHYCARDIA NONSPECIFIC ST & T-WAVE ABNORMALITY Compared to ECG 06/30/2023 10:15:36 Atrial flutter no longer present T-wave abnormality still present Electronically Signed On 07-10-2023 21:06:53 CDT by Hector Huitron M.D. [id number]
[2023-07-10] MEDS: capsaicin 0.025% cream 60 gm 1 APPLIC TOPICAL (17:17)
[2023-07-10] MEDS: haloperidol inj 5 mg/mL INJ 1 mL 2.5 MG IVP (17:18)
[2023-07-10] MEDS: LORazepam 2 mg/mL INJ 10 mL MDV 1 MG IVP (17:18)
[2023-07-10] MEDS: sodium chloride 0.9% 1,000 ML 999 ML IV (17:19)
[2023-07-10 17:23] LABS: Basophils % 0.4 %; Eosinophils % 0.3 %; Hematocrit 48.1 % (36-47); Lymphocytes # 1.1 10^3/uL (0.8-4.8); Lymphocytes % 15.5 %; Mean Corpuscular HGB Conc 35.3 g/dL (30-55); Mean Corpuscular Hemoglobin 31.1 pg (27-33); Mean Corpuscular Volume 87.9 fl (85-98); Mean Platelet Volume 11.7 fL (7.4-10.4); Monocytes # 0.4 10^3/uL (0.2-0.9); Monocytes % 5.6 %; Neutrophils # 5.41 10^3/uL (1.8-7.7); Neutrophils % 77.9 %; Nucleated Red Blood Cells % 0 %; Platelet Count 250 10^3/cmm (157-399); Red Blood Count 5.47 10^6/uL (3.85-5.65); Red Cell Distribution Width 13.2 % (12.1-15.1); White Blood Count 6.95 10^3/uL (3.29-11.43)
[2023-07-10 17:36] LABS: Slide Review Slide Review Perform
[2023-07-10 18:28] LABS: Alanine Aminotransferase 423 U/L (0-33); Albumin Level 4.4 g/dL (3.5-5.2); Alkaline Phosphatase 65 U/L (35-105); Blood Urea Nitrogen 10 mg/dL (6-20); Carbon Dioxide 20 mmol/L (22-29); Chloride 98 mmol/L (98-107); Globulin 3.1 g/dL (1.3-4.6); Glomerular Filtration Rate 201.5 mL/min (90-130); Glucose 100 mg/dL (65-115); Lipase 34 U/L (13-60); Osmolality Calculated 281 mOsm/kg (285-295); Sodium 136 mmol/L (136-145); Total Bilirubin 1.9 mg/dL (0.15-1.2); Total Protein 7.5 g/dL (6.6-8.7)
[2023-07-10 18:31] LABS: Creatinine Clr Calc Pharmacy 229.2171; HCG, Serum Qual Negative (Negative)
[2023-07-10 18:32] LABS: Anion Gap 21.4 (5-19); Aspartate Amino Transferase 122 U/L (0-32); Potassium 3.4 mmol/L (3.5-5.1)
[2023-07-10 18:37] LABS: Urine Color Dark Yellow (Yellow)
[2023-07-10 18:38] LABS: Add Urine Culture? No; Add Urine Microscopic? YES; Amorphous Sediment Urine 1+ /hpf; Bacteria Urine 2+ /hpf; Bilirubin Urine 1+ (Negative); Blood Urine Neg (Negative); Glucose Urine UA Norm (Normal); Ketones Urine 3+ (Negative); Leukocyte Esterase Urine Trace (Negative); Mucus Urine 4+ /hpf; Nitrate Urine Positive (Negative); Protein Urine 1+ (Negative); RBC Urine 0-4 /hpf (0-2); Squamous Epithelial Cell Urine 25-40 /hpf (0-5); Urine Appearance Cloudy (CLEAR); Urobilinogen Urine 4 mg/dL (Negative); pH Urine 5 (5-7)
--- NOTE | 2023-07-10 18:55 | CTR_ITS ---
PROCEDURE INFORMATION: Exam: CT Abdomen And Pelvis With Contrast Exam date and time: 07/10/2023 7:04 PM Age: 23 years old Clinical indication: Nausea and vomiting; Abdominal pain; Generalized; Prior surgery; Surgery date: 6+ months; Surgery type: Gb; Patient HX: Diffuse abd pain with n/v. ; Additional info: Severe n/v TECHNIQUE: Imaging protocol: Computed tomography of the abdomen and pelvis with contrast. Radiation optimization: All CT scans at this facility use at least one of these dose optimization techniques: automated exposure control; mA and/or kV adjustment per patient size (includes targeted exams where dose is matched to clinical indication); or iterative reconstruction. Contrast material: OMNI 350; Contrast volume: 100 ml; Contrast route: INTRAVENOUS (IV); COMPARISON: CT abdomen pelvis w con* [id number] 06/30/2023 1:45 PM RADIATION DOSE METRICS: Total DLP (mGy-cm): 492.65 FINDINGS: Liver: Hepatic steatosis. Gallbladder and bile ducts: Cholecystectomy. Pancreas: Normal. No ductal dilation. Spleen: Normal. No splenomegaly. Adrenal glands: Normal. No mass. Kidneys and ureters: Normal. No hydronephrosis. Stomach and bowel: Prominent fluid in the stomach and small bowel may reflect a gastroenteritis. Appendix: No evidence of appendicitis. Intraperitoneal space: Unremarkable. No free air. No significant fluid collection. Vasculature: Unremarkable. No abdominal aortic aneurysm. Lymph nodes: Unremarkable. No enlarged lymph nodes. Urinary bladder: Unremarkable as visualized. Reproductive: Fluid in the uterine cavity likely related menstrual status. Bones/joints: Unremarkable. No acute fracture. Soft tissues: Unremarkable. CT/CT abdomen pelvis w con* [id number] IMPRESSION: 1. Prominent fluid in the stomach and small bowel may reflect a gastroenteritis. 2. Fluid in the uterine cavity likely related menstrual status. 3. Hepatic steatosis. 4. Cholecystectomy.
[2023-07-10] MEDS: iohexol 350 mg/mL 500 mL Btl (per mL) IV (19:05)
[2023-07-10] MEDS: ciprofloxacin 500 mg Tablet PO (20:00)
[2023-07-10] MEDS: metroNIDAZOLE 500 MG Tablet PO (20:00)
[2023-07-10 20:22] VITALS: BP 126/85; PULSE 107; RESP 14; O2SAT 98
[2023-07-10 21:18] LABS: Hepatitis A Antibody IgM Non-Reactive (Nonreactive); Hepatitis B Core IgM Non-Reactive (Nonreactive); Hepatitis B Surface Antigen Non-Reactive (Nonreactive); Hepatitis C Virus Antibody Non-Reactive (Nonreactive)
== END 2023-07-10 20:24 | disposition home or self-care (01) ==
PROVIDERS: Physician Assistant; Emergency Provider Physician Assistant; PCP Family Medicine
DX: K52.9 Noninfective gastroenteritis and colitis, unspecified (principal); F17.290 Nicotine dependence, other tobacco product, uncomplicated
CPT/HCPCS: 36415; 74177; 80053; 80074; 81001; 83690; 84703; 85025; 93005; 96361; 96374; 96375; 99285; J1630; J2060; J7030; Q9967